=== PATIENT | female | born 1980 ===

== ENCOUNTER 2022-03-02 12:08 | Emergency (ER) | payer MEDICAID, OTHER ==
[~2022-03-02 12:08] MED LIST: Cephalexin 500 MG Cap ONE
[2022-03-02] MEDS ORDERED: Diphtheria,Pertussis(Acell),Tetanus Vaccine 0.5 ML SDV IM ONE (13:16)
== END 2022-03-02 13:14 | disposition home or self-care (01) ==
LOC: LB.ED 12:08
DX: S61.210A Laceration without foreign body of right index finger without damage to nail, initial encounter (principal); Z23 Encounter for immunization; W26.8XXA Contact with other sharp object(s), not elsewhere classified, initial encounter
CPT/HCPCS: 12002; 90471; 90715; 99282-25; A9270-GY